=== PATIENT | female | born 1995 | race Caucasian/White ===

== ENCOUNTER 2018-01-03 11:56 | Emergency (ER) | payer OTHER ==
[~2018-01-03] VITALS: Ht 152.4 cm; Wt 68.2 kg
[2018-01-03 12:03] VITALS: BP 107/65
== END 2018-01-03 13:23 | disposition home or self-care (01) ==
LOC: ED 13:17
DX: J06.9 Acute upper respiratory infection, unspecified (principal); E10.8 Type 1 diabetes mellitus with unspecified complications
CPT/HCPCS: 71045; 99283

== ENCOUNTER 2018-01-24 21:19 | Emergency (ER) | payer MEDICAID, OTHER ==
[~2018-01-24] VITALS: Ht 152.4 cm; Wt 68.0 kg
[2018-01-24 21:24] VITALS: BP 129/88
[2018-01-24] MEDS ORDERED: OXYcodone/APAP 5/325MG TABLET ONE (21:37)
[2018-01-24] MEDS ORDERED: BACITRACIN ZINC OINT 500U/GM, 0.9 GM ONE (21:38)
[2018-01-24] MEDS ORDERED: OXYcodone/APAP 5/325MG TABLET PO ONE (22:00)
== END 2018-01-24 22:53 | disposition home or self-care (01) ==
LOC: ED 22:45
DX: S83.422A Sprain of lateral collateral ligament of left knee, initial encounter (principal); E11.9 Type 2 diabetes mellitus without complications; W10.9XXA Fall (on) (from) unspecified stairs and steps, initial encounter; Y93.01 Activity, walking, marching and hiking; Y92.59 Other trade areas as the place of occurrence of the external cause; Y99.8 Other external cause status
CPT/HCPCS: 29505; 99284

== ENCOUNTER 2018-02-15 21:05 | Emergency (ER) | payer MEDICAID ==
[~2018-02-15] VITALS: Ht 152.4 cm; Wt 69.8 kg
[2018-02-15 21:09] VITALS: BP 149/98
[2018-02-15] MEDS ORDERED: NAPROXEN 500 MG TABLET PO ONE (22:00)
[2018-02-15] MEDS ORDERED: NAPROXEN 500 MG TABLET ONE (22:01)
== END 2018-02-15 22:13 | disposition home or self-care (01) ==
LOC: ED 22:11
DX: M25.462 Effusion, left knee (principal); E11.9 Type 2 diabetes mellitus without complications
CPT/HCPCS: 99283